=== PATIENT | male | born 1950 | race American Indian/Alaskan Native ===

== ENCOUNTER 2019-06-19 13:00 | Inpatient (IN) | payer MEDICARE ==
--- NOTE | 2019-06-19 13:12 | Emergency Department Report ---
Blank Doc - Documentation Documentation: 68-year-old male that presents with generalized weakness and unsteady gait that started yesterday. This initial assessment/diagnostic orders/clinical plan/treatment(s) is/are subject to change based on patient's health status, clinical progression and re- assessment by fellow clinical providers in the ED. Further treatment and workup at subsequent clinical providers discretion. Patient/guardians urged not to elope from the ED as their condition may be serious if not clinically assessed and managed. Initial orders include: 1- Patient sent to MAIN ED for further evaluation and treatment 2- CT head 3- labs 4- UA
--- NOTE | 2019-06-19 13:48 | XRay Report ---
CHEST 1 VIEW INDICATION: Altered Mental Status. COMPARISON: None FINDINGS: Support devices: None. Heart: Within normal limits. Lungs/Pleura: There is minor linear scarring or segmental atelectasis at the left lung base. Otherwis e the lungs are clear. Additional findings: None. IMPRESSION: No acute findings. Minor scarring or atelectasis at the left lung base. Signer Name: Tru Platt Jr, MD Signed: 06/19/2019 1:44 PM Workstation Name: [id number]
--- NOTE | 2019-06-19 14:06 | Emergency Department Report ---
ED General Adult HPI - General Chief complaint: Altered Mental Status Stated complaint: DISORIENTED/WEAK/FALL INJURY Time Seen by Provider: 06/19/19 13:11 Source: patient, family, RN notes reviewed Mode of arrival: Wheelchair Limitations: Altered Mental Status, Physical Limitation - History of Present Illness Initial comments: Primary care Dr.: Dr Yañez Psychiatry: Dr. Rehman The patient is a 68-year-old gentleman. The patient is not known to this provider previously. He has a history of diabetes and schizophrenia. History obtained entirely from the patient's son who lives with the patient. The patient's last known well time was sometime around 4:00 PM yesterday. As for the patient's son, the patient has been following, disoriented, and acting altered. As per the patient's son, no fevers, nausea, vomiting, change in medications recently. The patient is awake and follows commands, but is a poor historian, and is not able to describe exacerbating or relieving factors, qualitative nature of his symptoms. As for the patient's son, last known fall is last night. In the emergency room, the patient had an appropriate Accu-Chek, was protecting his airway, and moving 4 extremities. As per the son, patient typically able to walk on his own without assistance, although he does require some help with feeding and dressing himself. -: days(s) (last night/afternoon) Severity scale (0 -10): 5 Improves with: other Worsens with: other Treatments Prior to Arrival: other - Related Data Allergies Allergy/AdvReac Type Severity Reaction Status Date / Time No Known Allergies Allergy Unverified 06/19/19 13:03 ED Review of Systems ROS: Stated complaint: DISORIENTED/WEAK/FALL INJURY Other details as noted in HPI Comment: Unobtainable due to pts medical conditions (ros per son) Constitutional: malaise Neurological: weakness, confusion ED Past Medical Hx - Past Medical History Hx Hypertension: Yes Hx Psychiatric Treatment: Yes (DA[facility]ID) Additional medical history: HIGH CHOLESTEROL - Surgical History Past Surgical History?: No - Social History Smoking Status: Unknown if ever smoked ED Physical Exam - General Limitations: Altered Mental Status, Physical Limitation General appearance: alert - Head Head exam: Present: atraumatic, normocephalic - Eye Eye exam: Present: normal appearance, PERRL, EOMI - ENT ENT exam: Present: normal exam, normal orophraynx, mucous membranes moist, normal external ear exam - Neck Neck exam: Present: normal inspection, full ROM. Absent: tenderness, meningismus - Respiratory Respiratory exam: Present: normal lung sounds bilaterally. Absent: respiratory distress - Cardiovascular Cardiovascular Exam: Present: normal rhythm, tachycardia, normal heart sounds. Absent: systolic murmur, diastolic murmur, rubs, gallop - GI/Abdominal GI/Abdominal exam: Present: soft. Absent: distended, tenderness, guarding, rebound, rigid, pulsatile mass - Rectal Rectal exam: Present: deferred - Extremities Exam Extremities exam: Present: normal inspection (there is no clonus. Hyperreflexia is not noted.), full ROM, other (2+ pulses noted in the bilateral upper and lower extremities. The pelvis is stable. There is no long bony tenderness. The muscular compartments are soft. There is no redness, pus, streaking or erythema.). Absent: pedal edema, joint swelling, calf tenderness - Back Exam Back exam: Present: normal inspection. Absent: tenderness, CVA tenderness (R), CVA tenderness (L), paraspinal tenderness, vertebral tenderness - Neurological Exam Neurological exam: Present: altered (the patient is awake. The patient is moving 4 extremities. The patient mumbles incoherently. There is no facial droop.), abnormal gait - Psychiatric Psychiatric exam: Present: normal affect - Skin Skin exam: Present: warm, dry, intact, normal color. Absent: rash ED Course Vital Signs 06/19/19 06/19/19 06/19/19 13:13 14:08 14:34 Temperature 97.5 F L Pulse Rate 125 H 106 H 102 H Respiratory 20 19 Rate Blood Pressure 132/59 Blood Pressure 110/55 [Right] O2 Sat by Pulse 97 100 100 Oximetry 06/19/19 06/19/19 06/19/19 14:50 14:51 15:02 Temperature 97.0 F L Pulse Rate 101 H 107 H Respiratory 17 17 22 Rate Blood Pressure 98/43 Blood Pressure 98/43 [Right] O2 Sat by Pulse 100 100 99 Oximetry 06/19/19 06/19/19 06/19/19 15:22 17:28 17:30 Temperature Pulse Rate 138 H 105 H 103 H Respiratory 26 H 14 15 Rate Blood Pressure 98/43 141/67 Blood Pressure [Right] O2 Sat by Pulse 99 98 Oximetry - Reevaluation(s) Reevaluation #1: 06/19/19 14:33 Differential diagnosis, including but not limited to: Subacute stroke, intracranial injury, cervical spine injury, electrolyte derangement, thyroid derangement, pneumonia, urinary tract infection, multifactorial altered mental status Assessment and plan: 68-year-old gentleman who is awake, following commands, protecting his airway, moving 4 extremities spontaneously, with altered mental status and reported unsteady gait, last normal well time was 4:00 PM yesterday. Last known well time is more than 4.5 hours ago, therefore, he is not a TPA candidate. This is unlikely to be a large vessel occlusion. Suspect toxic/metabolic/possible infectious etiology. Plan is to check basic laboratory studies, rectal temperature, urinalysis, CT scan of the brain, CT scan of the cervical spine, and obtain stroke neurology consultation. Medication reconciliation has also been requested. Based off of the current physical examination, lack of clonus, lack of hyperreflexia, I think neuroleptic malignant syndrome is unlikely. Based off of lack of fever, neck pain, neck stiffness, I think meningitis and/or encephalitis are unlikely. 06/19/19 14:35 Reevaluation #2: 06/19/19 15:[address] recommends [address] angio head neck patient having diarrhea, multiple episodes no risk factors for c diff RN Instructed to obtain sample for lab analysis Reevaluation #3: 06/19/19 15:25 Patient standing up, trying to leave. The patient does not have decision-making capacity at this time. We discussed this extensively with his son. His son states that he will do his best to keep his father here. His son gives verbal permission to give medication to help, patient down. The patient is tachycardic, fluids ordered, Ativan ordered. Reevaluation #4: 06/19/19 17:09 CT scan of the brain is negative for acute disease. CT scan of the cervical spine is negative for acute disease. X-ray of the pelvis is negative for acute disease. Reevaluation #5: 06/19/19 17:46 cta head / neck negative for large vessel occlusion hospitalist paged for admission no fevers noted diarrhea likely viral, will provide fluids and supportive care antibiotics may make it worse so will withhold at this time - Consultations Consultation #1: 06/19/19 18:56 Dr Celso Jones to admit ED Medical Decision Making - Lab Data Result diagrams: 06/19/19 14:01 06/19/19 14:01 Vital Signs 06/19/19 13:13 Temperature 97.5 F L Pulse Rate 125 H Respiratory 20 Rate Blood Pressure 110/55 [Right] O2 Sat by Pulse 97 Oximetry Lab Results 06/19/19 06/19/19 Range/Units 14:01 14:16 WBC 10.9 (4.5-11.0) K/mm3 RBC 4.18 (3.65-5.03) M/mm3 Hgb 13.0 (11.8-15.2) gm/dl Hct 38.4 (35.5-45.6) % MCV 92 (84-94) fl MCH 31 (28-32) pg MCHC 34 (32-34) % RDW 13.8 (13.2-15.2) % Plt Count 264 (140-440) K/mm3 Lymph % (Auto) 9.9 L (13.4-35.0) % [place] % (Auto) 10.2 H (0.0-7.3) % Eos % (Auto) 0.1 (0.0-4.3) % Baso % (Auto) 0.3 (0.0-1.8) % Lymph # 1.1 L (1.2-5.4) K/mm3 [place] # 1.1 H (0.0-0.8) K/mm3 Eos # 0.0 (0.0-0.4) K/mm3 Baso # 0.0 (0.0-0.1) K/mm3 Seg Neutrophils % 79.5 H (40.0-70.0) % Seg Neutrophils # 8.7 H (1.8-7.7) K/mm3 POC Glucose 165 H (70-105) - EKG Data -: EKG Interpreted by Ny EKG shows normal: sinus rhythm Rate: tachycardia - EKG Data When compared to previous EKG there are: previous EKG unavailable 06/19/19 14:35 There is no prior EKG available for comparison. EKG shows a sinus tachycardia, 108 bpm, normal axis, QTC 469 ms, left ventricular hypertrophy, Q waves noted in the inferior leads, the EKG is abnormal, it is not consistent with STEMI. There is no prior for comparison. - Radiology Data Radiology results: pending, report reviewed, image reviewed eport Referring Physician: PHOEBE SAMUELS Patient Name: MALLORY CHERY Date of : 1950 Sex: Male Report Date: 2019-06-19 Report Status: Finalized Findings [facility] [address] [place] [address] XRay Report Signed Patient: MALLORY CHERY MR#: [id number] 9 : 1950 Acct:[id number] Age/Sex: 68 / M ADM Date: 06/19/19 Loc: ED Attending Dr: Ordering Physician: PHOEBE SAMUELS NP Date of Service: 06/19/19 Procedure(s): XR chest 1V ap Accession Number(s): [id number] cc: PHOEBE SAMUELS NP Fluoro Time In Minutes: CHEST 1 VIEW INDICATION: Altered Mental Status. COMPARISON: None FINDINGS: Support devices: None. Heart: Within normal limits. Lungs/Pleura: There is minor linear scarring or segmental atelectasis at the left lung base. Otherwise the lungs are clear. Additional findings: None. IMPRESSION: No acute findings. Minor scarring or atelectasis at the left lung base. Signer Name: Tru Platt Jr, MD Signed: 06/19/2019 1:44 PM Workstation Name: [id number] Transcribed By: TTR Dictated By: TRU PLATT JR, MD Electronically Authenticated By: TRU PLATT JR, MD Signed Date/Time: 06/19/19 1344 Critical care attestation.: If time is entered above; I have spent that time in minutes in the direct care of this critically ill patient, excluding procedure time. ED Disposition Clinical Impression: Altered mental status, History of unsteady gait Disposition: OP ADMIT IP TO THIS HOSP Is pt being admited?: Yes Does the pt Need Aspirin: Yes Condition: Stable Referrals: PRIMARY CARE,MD [Primary Care Provider] - 3-5 Days
--- NOTE | 2019-06-19 14:24 | Emergency Department Report ---
HPI - General Chief Complaint: Altered Mental Status Time Seen by Provider: 06/19/19 13:11 - HPI HPI: [facility] Date of Service: 06/19/2019 14:03:08 Impression: RO Acute Ischemic Stroke Comments: The patient has blood pressure medicaiton has his pressure very low, and he had diarrhea, with it all over the bathroom. Mechanism of Stroke: Possible Thromboembolic Metrics: Last Known Well: 06/18/2019 21:00:00 [facility] Notification Time: 06/19/2019 14:02:35 Arrival Time: 06/19/2019 14:03:08 Stamp Time: 06/19/2019 14:03:08 Time First Login Attempt: 06/19/2019 14:07:49 Video Start Time: 06/19/2019 14:07:49 Symptoms: dizzy, and fell, and disoriented, and confused. NIHSS Start Assessment Time: 06/19/2019 14:10:24 Patient is not a candidate for tPA. Patient was not deemed candidate for tPA thrombolytics because of Last Well Known Above 4.5 Hours. Video End Time: 06/19/2019 14:10:48 CT head showed no acute hemorrhage or acute core infarct. Advanced imaging was reviewed, No Indication of Large Vessel Occlusive Thrombus. Radiologist was called back for review of advanced imaging on 06/19/2019 14:13:09 ER Physician notified of the decision on thrombolytics management on 06/19/2019 14:13:09 Our recommendations are outlined below. Recommendations: Activate Stroke Protocol Admission/Order Set Stroke/Telemetry Floor Neuro Checks Bedside Swallow Eval DVT Prophylaxis IV Fluids, Normal Saline Head of Bed Below 30 Degrees Euglycemia and Avoid Hyperthermia (PRN Acetaminophen) Lipid Panel to Be Obtained, if Not Done in the Last Three Months Therapies: Physical Therapy, Occupational Therapy, Speech Therapy Assessment When Applicable Dysphaghia Screen: Swallow Evaluation, Bedside NPO Until Swallow Evaluation History of Present Illness: Patient is a 68 year old Male. He takes benztropine, and haloperidol. He stopped the bp meds and diabetes medication. CT head showed no acute hemorrhage or acute core infarct. Last seen normal was beyond 4.5 hours of presentation. There is no history of hemorrhagic complications or intracranial hemorrhage. There is no history of Recent Anticoagulants. There is no history of recent major surgery. There is no history of recent stroke. Examination: BP(165/90), Pulse(102), Blood Glucose(165) 1A: Level of Consciousness - Alert; keenly responsive + 0 1B: Ask Month and Age - Both Questions Right + 0 1C: Blink Eyes & Squeeze Hands - Performs Both Tasks + 0 2: Test Horizontal Extraocular Movements - Normal + 0 3: Test Visual Lopez - No Visual Loss + 0 4: Test Facial Palsy (Use Grimace if Obtunded) - Normal symmetry + 0 5A: Test Left Arm Motor Drift - No Drift for 10 Seconds + 0 5B: Test Right Arm Motor Drift - No Drift for 10 Seconds + 0 6A: Test Left Leg Motor Drift - No Drift for 5 Seconds + 0 6B: Test Right Leg Motor Drift - No Drift for 5 Seconds + 0 7: Test Limb Ataxia (FNF/Heel-Kessler) - No Ataxia + 0 8: Test Sensation - Normal; No sensory loss + 0 9: Test Language/Aphasia - Normal; No aphasia + 0 10: Test Dysarthria - Normal + 0 11: Test Extinction/Inattention - No abnormality + 0 NIHSS Score: 0 Patient was informed the Neurology Consult would happen via TeleHealth consult by way of interactive audio and video telecommunications and consented to receiving care in this manner. Due to the immediate potential for life-threatening deterioration due to underlying acute neurologic illness, I spent 35 minutes providing critical care. This time includes time for face to face visit via telemedicine, review of medical records, imaging studies and discussion of findings with providers, the patient and/or family. Dr Mateo Tamez [facility] Case [id number] ED Past Medical Hx - Past Medical History Hx Hypertension: Yes Hx Psychiatric Treatment: Yes (SCHZO) Additional medical history: HIGH CHOLESTEROL - Surgical History Past Surgical History?: No - Social History Smoking Status: Unknown if ever smoked ED Review of Systems ROS: Stated complaint: DISORIENTED/WEAK/FALL INJURY Other details as noted in HPI Physical Exam - Physical Exam Vital Signs: Vital Signs 06/19/19 13:13 Temperature 97.5 F L Pulse Rate 125 H Respiratory 20 Rate Blood Pressure 110/55 [Right] O2 Sat by Pulse 97 Oximetry ED Course Vital Signs 06/19/19 13:13 Temperature 97.5 F L Pulse Rate 125 H Respiratory 20 Rate Blood Pressure 110/55 [Right] O2 Sat by Pulse 97 Oximetry Critical care attestation.: If time is entered above; I have spent that time in minutes in the direct care of this critically ill patient, excluding procedure time. ED Disposition Condition: Stable Referrals: PRIMARY CARE, [Primary Care Provider] - 3-5 Days
[2019-06-19 14:29] LABS: Basophils % (Auto) 0.3 % (0.0-1.8); Eosinophils % (Auto) 0.1 % (0.0-4.3); Hematocrit 38.4 % (35.5-45.6); Lymphocytes # (Auto) 1.1 K/mm3 (1.2-5.4); Lymphocytes % (Auto) 9.9 % (13.4-35.0); Mean Corpuscular HGB Conc 34 % (32-34); Mean Corpuscular Volume 92 fl (84-94); Monocytes # (Auto) 1.1 K/mm3 (0.0-0.8); Monocytes % (Auto) 10.2 % (0.0-7.3); Platelet Count 264 K/mm3 (140-440); Red Blood Count 4.18 M/mm3 (3.65-5.03); Red Cell Distribution Width 13.8 % (13.2-15.2)
[2019-06-19 14:42] LABS: INR 1.06 (0.87-1.13)
[2019-06-19 14:43] LABS: Partial Thromboplastin Time 31.8 Sec. (24.2-36.6)
[2019-06-19 14:49] LABS: Alanine Aminotransferase 20 units/L (7-56); Albumin 4.1 g/dL (3.9-5); BUN/Creatinine Ratio 11; Blood Urea Nitrogen 11 mg/dL (9-20); Calcium 9.9 mg/dL (8.4-10.2); Hemolysis Index 8
[2019-06-19] MEDS ORDERED: SODIUM CHLORIDE 0.9% 1000 ML IV SOLN IV ONE (14:50)
--- NOTE | 2019-06-19 14:53 | Cat Scan Report ---
CT HEAD WITHOUT CONTRAST INDICATION / CLINICAL INFORMATION: Altered Mental Status. TECHNIQUE: All CT scans at this location are performed using CT dose reduction for ALARA by means of automated e xposure control. COMPARISON: None available. FINDINGS: HEMORRHAGE: No evidence of intracranial hemorrhage or extra-axial fluid collection. EXTRA-AXIAL SPACES: Cortical sulci and sylvian fissures are at the upper limit of normal in size for the patient's age 68 years. Basilar cisterns have an unremarkable appearance. VENTRICULAR SYSTEM: The third and lateral ventricles at the upper limit of normal for size in this 68 -year-old individual. CEREBRAL PARENCHYMA: Periventricular and deep white matter lucency is observed. This is probably secondary to microvascular ischemic change. There is no indication of recent infarc tion. No areas of encephalomalacia are identified. MIDLINE SHIFT OR HERNIATION: There is no mass effect. CEREBELLUM / BRAINSTEM: Brainstem and cerebellum have an unremarkable appearance. INTRACRANIAL VESSELS:Calcified atherosclerotic plaque is present at the distal vertebral arteries. ORBITS: visualized portions of the orbits have an unremarkable appearance. SOFT TISSUES of HEAD: No significant abnormality. CALVARIUM: Evaluation of bone windows reveals no abnormalities. PARANASAL SINUSES / MASTOID AIR CELLS: Paranasal sinuses are free from inflammatory mucosal disease. Mastoid air cells are normally pneumatized. IMPRESSION: 1. No acute intracranial abnormality on head CT without contrast. Signer Name: Mariano Kraft MD Signed: 06/19/2019 2:49 PM Workstation Name: [id number]
[2019-06-19] MEDS ORDERED: LORazepam 2 MG/ML VIAL IV STA (15:24)
--- NOTE | 2019-06-19 15:28 | Cat Scan Report ---
CT CERVICAL SPINE WITHOUT CONTRAST INDICATION / CLINICAL INFORMATION: Trauma. Patient fell sustaining neck injury. TECHNIQUE: Axial CT images were obtained through the cervical spine. Sagittal and coronal reformatted images wer e produced. All CT scans at this location are performed using CT dose reduction for ALARA by means of automated exposure control. COMPARISON: None FINDINGS: ALIGNMENT: Loss of the normal cervical lordosis is noted. No additional abnormalities of alignment ar e identified. There is no indication of traumatic subluxation. VERTEBRAE: Extensive anterior and mild posterior osteophyte formation is seen at multiple levels. The re is no indication of fracture. DISC SPACES: Near-complete loss of disc height is noted at the C3-4, C4-5 and C5-6 levels. INDIVIDUAL LEVEL ANALYSIS: C1-2: Advanced osteoarthritic changes are seen at the atlantoaxial junction between the anterior arch of C1 and the odontoid process where there is loss of joint space and prominent osteophyte formation . C2-3: Facet and uncovertebral arthropathy contribute to moderate bilateral foraminal stenosis. Centra l spinal canal remains adequate in size. C3-4: Near-complete loss of disc height is noted. Anterior osteophyte and mild posterior osteophyte a re observed. Uncovertebral arthritic change contribute to moderate bilateral foraminal stenosis. Cent ral spinal canal appears to be adequate in size. C4-5: Near-complete loss of disc height is noted. Prominent anterior osteophyte and mild posterior os teophyte are observed. Uncovertebral arthritic changes contribute to moderate right-sided and mild le ft-sided neuroforaminal stenosis at the C5 nerve root level. Central spinal canal is adequately maint ained. C5-6: Near complete loss of disc height is noted. Prominent anterior osteophyte formation is observed . uncovertebral arthritic change contribute to moderate bilateral foraminal stenosis at the C6 nerve root level. Central spinal canal is adequately maintained. C6-7: Disc height is noted. Prominent anterior osteophyte formation is observed. Central spinal canal and neuroforamina are normally maintained. C7-T1:No abnormality. CRANIOCERVICAL JUNCTION:No significant abnormality. SPINAL CANAL: No indication of central canal stenosis. PARASPINAL SOFT TISSUES: No significant abnormality. ADDITIONAL FINDINGS: None. LUNG APICES: No significant abnormality of visualized lungs. IMPRESSION: 1. Widespread cervical spondylosis with loss of disc height, anterior osteophyte, posterior osteophyt e and uncovertebral arthritic change at multiple levels as described level by level above. 2. Multifocal neuroforaminal stenosis. 3. No indication of fracture or traumatic subluxation. Signer Name: Mariano Kraft MD Signed: 06/19/2019 3:24 PM Workstation Name: [id number]
--- NOTE | 2019-06-19 16:44 | XRay Report ---
PELVIS ONE VIEW. INDICATION / CLINICAL INFORMATION: falls weakness COMPARISON: None available. FINDINGS: BONES / JOINT(S): No acute fracture or subluxation. No significant arthritis. SOFT TISSUES: No significant abnormality. ADDITIONAL FINDINGS: None. Signer Name: Jarrod Parker MD Signed: 06/19/2019 4:39 PM Workstation Name: [id number]
--- NOTE | 2019-06-19 17:23 | Cat Scan Report ---
CTA neck with intravenous contrast material CLINICAL HISTORY: [facility] TECHNIQUE: Following acquisition of a timing bolus 1.25 mm thick contiguous axial scans were obtained from aorti c arch to the skull base during rapid bolus intravenous contrast infusion. In addition to evaluation of axial source images multiplanar reconstructions were produced and reviewed for this report. 3 plan e MIP reconstructions were produced and reviewed. FINDINGS: Thoracic aorta: No abnormalities are seen at the origins of the great vessels. Incidental note is mad e of a common origin of the brachiocephalic left common carotid artery. Brachiocephalic artery and le ft subclavian artery have an unremarkable appearance. Right carotid artery: No abnormalities are seen along the course of the right common carotid artery. Evaluation of the carotid bifurcations remarkable for minimal calcified atherosclerotic plaque along the lateral aspect of the right carotid bulb. There is no indication of stenosis. Cervical portions o f the R ICA have a normal appearance. Left carotid artery: Left common carotid artery has a normal appearance. Evaluation of the left carot id bifurcation is remarkable for the presence of calcified atherosclerotic plaque along the posterior lateral wall of the left carotid bulb. There is no associated stenosis. Cervical segments of the LIC A have a normal appearance. Normal and symmetrical vertebral arteries are present. There is no indication of stenosis along the c ourse of the vertebral arteries is artery origin is not included on this study. The degree of stenosi s, if any, is determined utilizing NASCET like criteria. In this case there is no indication of hemo dynamically significant stenosis at the carotid bifurcations or elsewhere. Evaluation of the nonvascular soft tissue structures reveal no abnormality. There is no indication of cervical lymphadenopathy. No abnormalities are seen along the course of the airway. Visualized porti ons of the parotid glands and the submandibular salivary glands have a normal appearance. Thyroid gla nd has a normal appearance. Evaluation of the lung apices reveals no evidence of lung nodule or infil trate. Evaluation of the cervical spine is remarkable for widespread cervical spondylosis. Please ref er to report of CT cervical spine dated 06/19/2019 which is dictated separately. IMPRESSION: 1. No indication of hemodynamically significant stenosis at the carotid bifurcations or elsewhere. Contrast dose report: Omnipaque 350: 100 ml, administered intravenously All CT examinations performed at this facility utilize modulated dose reduction, iterative reconstruc tion or weight-based dosing, as appropriate, to obtain a radiation dose which is as low as can reason ably be achieved. Signer Name: Mariano Kraft MD Signed: 06/19/2019 5:19 PM Workstation Name: [id number]
--- NOTE | 2019-06-19 17:28 | Cat Scan Report ---
CTA head with intravenous contrast CLINICAL HISTORY: [facility] TECHNIQUE: 0.625 mm thick contiguous axial scans were obtained from the skull base to the skull vertex during ra pid bolus administration of intravenous contrast material. Multiplanar reconstructions were produced in the coronal and sagittal planes. In addition 3 plane MIP instructions were produced and reviewed f or this report. The axial source images and reconstructed images were reviewed for this report. All CT scans at this location are performed using CT dose reduction for ALARA by means of automated e xposure control. FINDINGS: The caliber of the intracranial vessels is normal throughout. There is no indication of intracranial stenosis or large vessel occlusion. There is no evidence of aneurysm or other vascular malformation. Internal carotid arteries, middle cerebral arteries, anterior cerebral arteries all have an unremarka ble appearance. Balanced vertebral arteries both contribute basilar artery origin. Basilar artery has an unremarkable appearance. Symmetrical visualization of the posterior cerebral arteries is noted bi laterally. IMPRESSION: No abnormality identified on CTA head. CONTRAST DOSE REPORT: Omnipaque 350: 100 ml administered intravenously. Signer Name: Mariano Kraft MD Signed: 06/19/2019 5:24 PM Workstation Name: [id number]
--- NOTE | 2019-06-19 18:51 | History and Physical Report ---
History of Present Illness Chief complaint: He is confused History of present illness: 68-year-old male with hypertension, schizophrenia, hyperlipidemia presents to emergency department for evaluation. Patient is confused and unable to provide history at time of my exam. Patient history taken from son, as well as ED staff and EMS staff. As per son, the patient was in his usual state of health last night at bedtime around 2000 hrs. The patient also experienced a fall on yesterday. The patient son also reports that the patient has experienced increased confusion over the past 24 hours. Patient was transported to [facility] via private vehicle. The patient was seen and evaluated in the emergency department. A code stroke was called and tele-neurology was consulted. The patient was deemed not to be a candidate for TPA. The patient was placed in observation status and admitted to the [facility] unit and initiated on stroke protocol. The patient is currently nonambulatory, confused, and unable to conduct activities of daily living. As per the patient's son this is significantly different than the patient's baseline. Neurology team consulted in the emergency department. No reports of fever, chills, chest pain, productive cough, skin rash, bright red blood per rectum, known recent ill contacts. No prior admission for review. No medication listed for reconciliation at time of admission. Past History Past Medical History: hypertension, other (see HPI) Past Surgical History: No surgical history, Other (reviewed) Social history: single, lives with family. denies: smoking, alcohol abuse, p rescription drug abuse Family history: hypertension Medications and Allergies Allergies Allergy/AdvReac Type Severity Reaction Status Date / Time No Known Allergies Allergy Verified 06/19/19 19:14 Home Medications Medication Instructions Recorded Confirmed Last Taken Type AtorvaSTATin [Lipitor] 20 mg PO QHS 06/19/19 06/19/19 06/18/19 History Benztropine [Cogentin] 1 mg PO BID 06/19/19 06/19/19 06/19/19 History Ferrous Sulfate [Ferrous Sulfate 324 mg PO DAILY 06/19/19 06/19/19 06/19/19 History 324 MG] Quetiapine Fumarate [Seroquel Xr] 200 mg PO QHS 06/19/19 06/19/19 06/18/19 History haloperidoL [Haloperidol] 20 mg PO QDAY 06/19/19 06/19/19 06/19/19 History Review of Systems ROS unobtainable: due to mental status Exam - Constitutional Vitals: Temp Pulse Resp BP Pulse Ox 97.0 F L 103 H 15 141/67 98 06/19/19 14:50 06/19/19 17:30 06/19/19 17:30 06/19/19 17:30 06/19/19 17:30 General appearance: Present: mild distress - EENT Eyes: Present: PERRL ENT: hearing intact, clear oral mucosa - Neck Neck: Present: supple, normal ROM - Respiratory Respiratory effort: normal Respiratory: bilateral: CTA - Cardiovascular Heart Sounds: Present: S1 & S2. Absent: rub, click - Extremities Extremities: pulses symmetrical, No edema Peripheral Pulses: within normal limits - Abdominal General gastrointestinal: Present: soft, non-tender, non-distended, normal bowel sounds Male genitourinary: Present: normal - Integumentary Integumentary: Present: clear, warm, dry - Musculoskeletal Musculoskeletal: generalized weakness - Psychiatric Psychiatric: no appropriate mood/affect, no intact judgment & insight, no memory intact - Neurologic Neurologic: CNII-XII intact, moves all extremities, no gait normal Results - Labs CBC & Chem 7: 06/19/19 14:01 06/19/19 14:01 Labs: Abnormal lab results 06/19/19 06/19/19 06/19/19 Range/Units 14:01 14:01 14:01 Lymph % (Auto) 9.9 L (13.4-35.0) % [place] % (Auto) 10.2 H (0.0-7.3) % Lymph # 1.1 L (1.2-5.4) K/mm3 [place] # 1.1 H (0.0-0.8) K/mm3 Seg Neutrophils % 79.5 H (40.0-70.0) % Seg Neutrophils # 8.7 H (1.8-7.7) K/mm3 Sodium 134 L (137-145) mmol/L Chloride 96.0 L (98-107) mmol/L Glucose 165 H (75-100) mg/dL POC Glucose (70-105) Lactic Acid 2.60 H* (0.7-2.0) mmol/L Salicylates (2.8-20.0) mg/dL Acetaminophen (10.0-30.0) ug/mL Phenytoin (10.0-20.0) ug/mL Valproic Acid (50-100) ug/mL 06/19/19 06/19/19 06/19/19 Range/Units 14:01 14:01 14:16 Lymph % (Auto) (13.4-35.0) % [place] % (Auto) (0.0-7.3) % Lymph # (1.2-5.4) K/mm3 [place] # (0.0-0.8) K/mm3 Seg Neutrophils % (40.0-70.0) % Seg Neutrophils # (1.8-7.7) K/mm3 Sodium (137-145) mmol/L Chloride (98-107) mmol/L Glucose (75-100) mg/dL POC Glucose 165 H (70-105) Lactic Acid (0.7-2.0) mmol/L Salicylates < 0.3 L (2.8-20.0) mg/dL Acetaminophen < 5.0 L (10.0-30.0) ug/mL Phenytoin 0.8 L (10.0-20.0) ug/mL Valproic Acid < 2.8 L (50-100) ug/mL 06/19/19 Range/Units 16:49 Lymph % (Auto) (13.4-35.0) % [place] % (Auto) (0.0-7.3) % Lymph # (1.2-5.4) K/mm3 [place] # (0.0-0.8) K/mm3 Seg Neutrophils % (40.0-70.0) % Seg Neutrophils # (1.8-7.7) K/mm3 Sodium (137-145) mmol/L Chloride (98-107) mmol/L Glucose (75-100) mg/dL POC Glucose (70-105) Lactic Acid 2.20 H* (0.7-2.0) mmol/L Salicylates (2.8-20.0) mg/dL Acetaminophen (10.0-30.0) ug/mL Phenytoin (10.0-20.0) ug/mL Valproic Acid (50-100) ug/mL Assessment and Plan - Patient Problems (1) CVA (cerebral vascular accident) Current Visit: Yes Status: Acute Qualifiers: Laterality of affected vessel: unspecified Plan to address problem: Stroke protocol initiated: CT head, echocardiogram, carotid Doppler, neuro checks, seizure precautions, aspiration precautions, lipid panel, antiplatelet therapy, neurology consult, blood pressure control. (2) Encephalopathy Current Visit: Yes Status: Acute Plan to address problem: CT head, neurochecks, aspiration precautions, fall precautions, thyroid panel. (3) Diabetes Current Visit: Yes Status: Acute Plan to address problem: Consistent carbohydrate diet when able to tolerate oral intake, sliding scale insulin, Accu-Cheks, hypoglycemia protocol. (4) HTN (hypertension) Current Visit: Yes Status: Acute Qualifiers: Hypertension type: essential hypertension Qualified Code(s): I10 - Essential (primary) hypertension Plan to address problem: Monitor blood pressure every shift, permissive hypertension overnight. (5) Schizophrenia Current Visit: Yes Status: Acute Qualifiers: Schizophrenia type: unspecified Qualified Code(s): F20.9 - Schizophrenia, unspecified Plan to address problem: Supportive care, psychiatry consult (6) DVT prophylaxis Current Visit: Yes Status: Acute Plan to address problem: SCD to bilateral lower extremities while in bed, prophylactic heparin
[2019-06-19] MEDS ORDERED: MAGNESIUM HYDROXIDE (MOM) ORAL LIQD UDC PO PRN (18:58)
[2019-06-19] MEDS ORDERED: ACETAMINOPHEN 325 MG TAB PO PRN (18:58)
[2019-06-19] MEDS ORDERED: METOCLOPRAMIDE 10 MG TAB PO PRN (18:58)
[2019-06-19] MEDS ORDERED: ONDANSETRON 4 MG/2 ML INJ IV PRN (18:58)
[2019-06-19] MEDS ORDERED: ALBUTEROL 2.5 MG/3 ML NEBU IH PRN (18:58)
[2019-06-19] MEDS ORDERED: PROMETHAZINE 25 MG RECT SUPP PR PRN (18:58)
[2019-06-19] MEDS ORDERED: QUETIAPINE FUMARATE 200 MG PO SCH (22:00)
[2019-06-19] MEDS: BENZTROPINE 1 MG TAB PO SCH (23:17)
[2019-06-19] MEDS: HEPARIN 5,000 UNIT/1 ML VIAL SUB-Q SCH (23:17)
[2019-06-20 05:29] LABS: Bilirubin,Urine NEG (Negative); Blood,Urine MOD (Negative); Color,Urine Straw (Yellow); Protein,Urine <15 mg/dL mg/dL (Negative); Urobilinogen,Urine < 2.0 mg/dL (<2.0); WBC,Urine < 1.0 /HPF (0.0-6.0)
[2019-06-20 05:33] LABS: RBC,Urine < 1.0 /HPF (0.0-6.0)
--- NOTE | 2019-06-20 09:26 | Consultation ---
History of Present Illness Consult date: 06/20/19 Requesting physician: BRYON SALAZAR Reason for Consult: ams Chief complaint: I fell History of present illness: This is a 68-year-old male who cannot give his own history he has slurred speech at bedside history of diabetes and schizophrenia a stone chart review arrived with generalized weakness last time known normal was 4 PM on 06/18/2019 active issues include diarrhea Patient was acting altered this oriented was brought in by his son on admission no fever no hypoglycemia no hypoxia he was awake following commands in the ER moving all extremities well at baseline he needs help with feeding but walks independently Stroke workup was completed he was outside the 4-1/2 hour window and large vessel occlusion was not suspected Most of the history was taken from chart review does not seem he has a history of stroke in the past but bedside it seems she has some significant slurred speech and when asking to raise his arms up in the air looks like his left arm is down he is up poor historian and poor cooperation on exam EKG was sinus rhythm CT of the head reviewed and was negative for acute intracranial process. CTA of the head and neck reviewed no large vessel occlusion CT of the cervical spine reviewed negative for fracture No further neurological decline no atrial fibrillation no posturing seizures loss of consciousness no extra movements no tremor no hallucinations no nausea vomiting Patient denies any new numbness or tingling but does add briefly that he feels his left side is weak Overall patient looks very thin and deconditioned There's been no events overnight Patient understands he is in the hospital understands the time of year and can give me his name Patient denies headache Past medical history hypertension Family history hypertension Social history single lives with his family denies smoking alcohol or drugs Patient has been placed on aspirin echocardiogram lipid panel A1c are all pending along with the MRI brain lactic acid elevated ROS: all other systems neg Past History Past Medical History: hypertension, other (see HPI) Past Surgical History: No surgical history, Other (reviewed) Social history: single, lives with family. denies: smoking, alcohol abuse, prescription drug abuse Family history: hypertension Medications and Allergies Allergies Allergy/AdvReac Type Severity Reaction Status Date / Time No Known Allergies Allergy Verified 06/19/19 19:14 Home Medications Medication Instructions Recorded Confirmed Last Taken Type AtorvaSTATin [Lipitor] 20 mg PO QHS 06/19/19 06/19/19 06/18/19 History Benztropine [Cogentin] 1 mg PO BID 06/19/19 06/19/19 06/19/19 History Ferrous Sulfate [Ferrous Sulfate 324 mg PO DAILY 06/19/19 06/19/19 06/19/19 History 324 MG] Quetiapine Fumarate [Seroquel Xr] 200 mg PO QHS 06/19/19 06/19/19 06/18/19 History haloperidoL [Haloperidol] 20 mg PO QDAY 06/19/19 06/19/19 06/19/19 History Active Meds: Active Medications Acetaminophen (Tylenol) 650 mg PO Q4H PRN PRN Reason: Pain, Mild (1-3) Albuterol (Proventil) 2.5 mg IH Q3HRT PRN PRN Reason: Shortness Of Breath Aspirin (Aspirin) 325 mg PO QDAY [facility] Atorvastatin Calcium (Lipitor) 40 mg PO QHS [facility] Last Admin: 06/19/19 23:17 Dose: 40 mg Documented by: Benztropine Mesylate (Cogentin) 1 mg PO BID [facility] Last Admin: 06/19/19 23:17 Dose: 1 mg Documented by: Bisacodyl (Dulcolax) 10 mg [place] QDAY PRN PRN Reason: Constipation Ferrous Sulfate (Feosol) 325 mg PO QDAY [facility] Haloperidol (Haldol) 20 mg PO QDAY [facility] Heparin Sodium (Porcine) (Heparin) 5,000 unit SUB-Q Q12HR [facility] Last Admin: 06/19/19 23:17 Dose: 5,000 unit Documented by: Magnesium Hydroxide (Milk Of Magnesia) 30 ml PO Q4H PRN PRN Reason: Constipation Metoclopramide HCl (Reglan) 10 mg PO Q6H PRN PRN Reason: Nausea And Vomiting Miscellaneous Medication (Quetiapine Fumarate [Seroquel Xr]) 200 mg PO QHS [facility] Ondansetron HCl (Zofran) 4 mg IV Q8H PRN PRN Reason: Nausea And Vomiting Promethazine HCl (Phenergan) 25 mg [place] Q6H PRN PRN Reason: Nausea And Vomiting Sodium Chloride (Sodium Chloride Flush Syringe 10 Ml) 10 ml IV PRN PRN PRN Reason: LINE FLUSH Physical Examination - Vital Signs Vital Signs: Vital Signs Temp Pulse Resp BP Pulse Ox 97.5 F L 125 H 20 110/55 97 06/19/19 13:13 06/19/19 13:13 06/19/19 13:13 06/19/19 13:13 06/19/19 13:13 Patient is somewhat oriented to place and person doesn't really understand why he is here but he says his son brought him here he is oriented to season of the year there is mild to moderate disorientation overall He is awake and alert's Significant dysarthria No aphasia and no A apraxia or agnosia as best I can tell Cranial nerves II through XII are intact patient denies any facial numbness or loss of sensation to the left side of his face or right side Neck is supple skin intact pulses good times for abdomen soft Patient is very thin and overall decreased bulk throughout Very thin quadriceps loss of muscle bulk Patient seems to have some left-sided weakness 4 out of 5 strength namely the left upper extremity when asking do pronator drift testing He was able to walk to the bathroom per nursing without a left hemiparetic gait doesn't seem he has significant weakness in the left lower extremity I suspect slurred speech and left upper extremity weakness Otherwise tone is intact and symmetrically normal throughout deep tendon reflexes are 1+ throughout and symmetrical No overt cerebellar signs no extra movements Sensory seems intact throughout but this can be also unreliable Tongue is midline no discharge nose or ears EOMI PERRL Patient denies any double vision and visual [place] are full Results - Laboratory Findings CBC and BMP: 06/19/19 14:01 06/19/19 14:01 Abnormal Lab Findings: Abnormal Labs 06/19/19 06/19/19 06/19/19 14:01 14:01 14:01 Lymph % (Auto) 9.9 L Sebastian % (Auto) 10.2 H Lymph # 1.1 L Sebastian # 1.1 H Seg Neutrophils % 79.5 H Seg Neutrophils # 8.7 H Sodium 134 L Chloride 96.0 L Glucose 165 H POC Glucose Lactic Acid 2.60 H* Salicylates Acetaminophen Phenytoin Valproic Acid 06/19/19 06/19/19 06/19/19 14:01 14:01 14:16 Lymph % (Auto) Sebastian % (Auto) Lymph # Sebastian # Seg Neutrophils % Seg Neutrophils # Sodium Chloride Glucose POC Glucose 165 H Lactic Acid Salicylates < 0.3 L Acetaminophen < 5.0 L Phenytoin 0.8 L Valproic Acid < 2.8 L 06/19/19 16:49 Lymph % (Auto) Sebastian % (Auto) Lymph # Sebastian # Seg Neutrophils % Seg Neutrophils # Sodium Chloride Glucose POC Glucose Lactic Acid 2.20 H* Salicylates Acetaminophen Phenytoin Valproic Acid Assessment and Plan Concern for posterior circulation stroke basilar distribution acute ischemic thrombosis causing dysarthria and left upper extremity weakness, lacunar syndrome, stable, today would be day 2 after onset , no hyperacute stroke treatments were indicated based on time of presentation outside the TPA window and suspected large vessel occlusion was negative based on CTAs of the head and neck CT cervical spine negative for fracture No atrial fibrillation no recurrent strokes Antiplatelet onboard Statin Telemetry MRI brain pending echocardiogram with bubble pending PT OT Fall precautions No active psychosis Differential diagnosis patient did not arrive with hypertensive urgency to suggest PRES gen. weakness and fall may be secondary to systemic illness, dehydration, failure to thrive/ he did arrive with diarrhea seizure, lactic acid is elevated
[2019-06-20] MEDS: BENZTROPINE 1 MG TAB PO SCH ×2 (09:49→21:32)
[2019-06-20] MEDS: HEPARIN 5,000 UNIT/1 ML VIAL SUB-Q SCH ×2 (09:49→21:31)
[2019-06-20] MEDS: FERROUS SULFATE 325 MG TAB PO SCH (09:49)
[2019-06-20] MEDS: ASPIRIN 325 MG TAB PO SCH (09:49)
[2019-06-20] MEDS ORDERED: HALOPERIDOL 20 MG PO SCH (10:00)
[2019-06-20] MEDS ORDERED: NON-FORMULARY EACH (Ferrous Sulfate [Ferrous Sulfate 324 Mg] 324 MG) PO SCH (10:00)
[2019-06-20] MEDS: HALOPERIDOL 5 MG TAB PO SCH (10:01)
--- NOTE | 2019-06-20 10:59 | Progress Note ---
Assessment and Plan Assessment and plan: Acute CVA. CTA of the head and neck showed no large vessel occlusion or acute intracranial process. Continue stroke protocol. Follow-up echocardiogram, carotid Doppler and MRI brain. Continue aspirin and statin. Continue telemetry monitoring. PT/OT. Diabetes mellitus type 2. Continue Accu-Cheks and sliding scale insulin. Hypertension. Continue antihypertensive medications Schizophrenia. Psychiatry consulted. History Interval history: Patient appears to have dysarthria. No new issues overnight. Hospitalist Physical - Constitutional Vitals: Temp Pulse Resp BP Pulse Ox 98.1 F 94 H 20 102/51 98 06/20/19 07:44 06/20/19 07:44 06/20/19 07:44 06/20/19 07:44 06/20/19 07:44 General appearance: Present: mild distress - EENT Eyes: Present: PERRL, EOM intact ENT: hearing intact, clear oral mucosa, dentition normal - Neck Neck: Present: supple, normal ROM - Respiratory Respiratory effort: normal Respiratory: bilateral: CTA - Cardiovascular Rhythm: regular Heart Sounds: Present: S1 & S2. Absent: gallop, rub - Extremities Extremities: no ischemia, No edema, Full ROM - Abdominal General gastrointestinal: soft, non-tender, non-distended, normal bowel sounds - Integumentary Integumentary: Present: clear, warm, dry - Neurologic Neurologic: CNII-XII intact, moves all extremities Results - Labs CBC & Chem 7: 06/19/19 14:01 06/19/19 14:01 Labs: Laboratory Last Values WBC 10.9 K/mm3 (4.5-11.0) 06/19/19 14:01 RBC 4.18 M/mm3 (3.65-5.03) 06/19/19 14:01 Hgb 13.0 gm/dl (11.8-15.2) 06/19/19 14:01 Hct 38.4 % (35.5-45.6) 06/19/19 14:01 MCV 92 fl (84-94) 06/19/19 14:01 MCH 31 pg (28-32) 06/19/19 14:01 MCHC 34 % (32-34) 06/19/19 14:01 RDW 13.8 % (13.2-15.2) 06/19/19 14:01 Plt Count 264 K/mm3 (140-440) 06/19/19 14:01 Lymph % (Auto) 9.9 % (13.4-35.0) L 06/19/19 14:01 [place] % (Auto) 10.2 % (0.0-7.3) H 06/19/19 14:01 Eos % (Auto) 0.1 % (0.0-4.3) 06/19/19 14:01 Baso % (Auto) 0.3 % (0.0-1.8) 06/19/19 14:01 Lymph # 1.1 K/mm3 (1.2-5.4) L 06/19/19 14:01 [place] # 1.1 K/mm3 (0.0-0.8) H 06/19/19 14:01 Eos # 0.0 K/mm3 (0.0-0.4) 06/19/19 14:01 Baso # 0.0 K/mm3 (0.0-0.1) 06/19/19 14:01 Seg Neutrophils % 79.5 % (40.0-70.0) H 06/19/19 14:01 Seg Neutrophils # 8.7 K/mm3 (1.8-7.7) H 06/19/19 14:01 PT 13.9 Sec. (12.2-14.9) 06/19/19 14:01 INR 1.06 (0.87-1.13) 06/19/19 14:01 APTT 31.8 Sec. (24.2-36.6) 06/19/19 14:01 Sodium 134 mmol/L (137-145) L 06/19/19 14:01 Potassium 3.8 mmol/L (3.6-5.0) 06/19/19 14:01 Chloride 96.0 mmol/L (98-107) L 06/19/19 14:01 Carbon Dioxide 22 mmol/L (22-30) 06/19/19 14:01 Anion Gap 20 mmol/L 06/19/19 14:01 BUN 11 mg/dL (9-20) 06/19/19 14:01 Creatinine 1.0 mg/dL (0.8-1.5) 06/19/19 14:01 Estimated GFR > 60 ml/min 06/19/19 14:01 BUN/Creatinine Ratio 11 % 06/19/19 14:01 Glucose 165 mg/dL (75-100) H 06/19/19 14:01 POC Glucose 165 (70-105) H 06/19/19 14:16 Lactic Acid 1.80 mmol/L (0.7-2.0) 06/19/19 18:50 Calcium 9.9 mg/dL (8.4-10.2) 06/19/19 14:01 Magnesium 2.00 mg/dL (1.7-2.3) 06/19/19 14:01 Total Bilirubin 0.60 mg/dL (0.1-1.2) 06/19/19 14:01 AST 19 units/L (5-40) 06/19/19 14:01 ALT 20 units/L (7-56) 06/19/19 14:01 Alkaline Phosphatase 87 units/L (35-129) 06/19/19 14:01 Ammonia 26.0 umol/L (25-60) 06/19/19 14:13 Total Creatine Kinase 118 units/L (55-170) 06/19/19 14:01 Troponin T < 0.010 ng/mL (0.00-0.029) 06/19/19 18:50 Total Protein 7.9 g/dL (6.3-8.2) 06/19/19 14:01 Albumin 4.1 g/dL (3.9-5) 06/19/19 14:01 Albumin/Globulin Ratio 1.1 % 06/19/19 14:01 TSH 0.908 mlU/mL (0.270-4.200) 06/19/19 14:13 Urine Color Straw (Yellow) 06/20/19 05:00 Urine Turbidity Clear (Clear) 06/20/19 05:00 Urine pH 6.0 (5.0-7.0) 06/20/19 05:00 Ur Specific [place] 1.014 (1.003-1.030) 06/20/19 05:00 Urine Protein <15 mg/dl mg/dL (Negative) 06/20/19 05:00 Urine Glucose (UA) Neg mg/dL (Negative) 06/20/19 05:00 Urine Ketones Neg mg/dL (Negative) 06/20/19 05:00 Urine Blood Mod (Negative) 06/20/19 05:00 Urine Nitrite Neg (Negative) 06/20/19 05:00 Urine Bilirubin Neg (Negative) 06/20/19 05:00 Urine Urobilinogen < 2.0 mg/dL (<2.0) 06/20/19 05:00 Ur Leukocyte Esterase Neg (Negative) 06/20/19 05:00 Urine WBC (Auto) < 1.0 /HPF (0.0-6.0) 06/20/19 05:00 Urine RBC (Auto) < 1.0 /HPF (0.0-6.0) 06/20/19 05:00 U Epithel Cells (Auto) < 1.0 /HPF (0-13.0) 06/20/19 05:00 Salicylates < 0.3 mg/dL (2.8-20.0) L 06/19/19 14:01 Acetaminophen < 5.0 ug/mL (10.0-30.0) L 06/19/19 14:01 Phenytoin 0.8 ug/mL (10.0-20.0) L 06/19/19 14:01 Valproic Acid < 2.8 ug/mL (50-100) L 06/19/19 14:01 [place] 0.1 mmol/L (0.0-1.2) 06/19/19 14:01 Plasma/Serum Alcohol < 0.01 % (0-0.07) 06/19/19 14:13 Active Medications - Current Medications Current Medications: Generic Name Dose Route Start Last Admin Trade Name Freq PRN Reason Stop Dose Admin Acetaminophen 650 mg 06/19/19 18:58 Tylenol PO Q4H PRN Pain, Mild (1-3) Albuterol 2.5 mg 06/19/19 18:58 Proventil IH Q3HRT PRN Shortness Of Breath Aspirin 325 mg 06/20/19 10:00 06/20/19 09:49 Aspirin PO 325 mg QDAY [facility] Administration Atorvastatin Calcium 40 mg 06/19/19 22:00 06/19/19 23:17 Lipitor PO 40 mg QHS [facility] Administration Benztropine Mesylate 1 mg 06/19/19 22:00 06/20/19 09:49 Cogentin PO 1 mg BID [facility]IO[facility]E Administration Bisacodyl 10 mg 06/19/19 18:58 Dulcolax [place] QDAY PRN Constipation Ferrous Sulfate 325 mg 06/20/19 10:00 06/20/19 09:49 Feosol PO 325 mg QDAY [facility] Administration Haloperidol 20 mg 06/20/19 10:00 06/20/19 10:01 Haldol PO 20 mg QDAY [facility] Administration Heparin Sodium (Porcine) 5,000 unit 06/19/19 22:00 06/20/19 09:49 Heparin SUB-Q 5,000 unit Q12HR [facility] Administration Magnesium Hydroxide 30 ml 06/19/19 18:58 Milk Of Magnesia PO Q4H PRN Constipation Metoclopramide HCl 10 mg 06/19/19 18:58 Reglan PO Q6H PRN Nausea And Vomiting Miscellaneous Medication 200 mg 06/19/19 22:00 Quetiapine Fumarate [Seroquel Xr] PO QHS [facility] Ondansetron HCl 4 mg 06/19/19 18:58 Zofran IV Q8H PRN Nausea And Vomiting Promethazine HCl 25 mg 06/19/19 18:58 Phenergan [place] Q6H PRN Nausea And Vomiting Sodium Chloride 10 ml 06/19/19 18:58 Sodium Chloride Flush Syringe 10 Ml IV PRN PRN LINE FLUSH
[2019-06-20] MEDS ORDERED: hydrALAZINE 20 MG/1 ML INJ IV PRN (23:23)
[2019-06-21] MEDS: SODIUM CHLORIDE 0.9% 1000 ML 1,000 ML IV SCH (06:21)
[2019-06-21 08:36] LABS: Chol/HDL Ratio 1.9 %
--- NOTE | 2019-06-21 10:54 | Consultation ---
History of Present Illness - Reason for Consult Consult date: 06/21/19 Reason for consult: Schizophrenia Requesting physician: BRYON SALAZAR - Chief Complaint Chief complaint: I fell - History of Present Psychiatric Illness The patient is a 68-year-old male with history of hypertension, schizophrenia, hyperlipidemia admitted via the ED with c/o confusion. Psychiatry consult requested for medication management of Schizophrenia. Patient is not able to engage in meaningful conversation. Per medical records his home psych meds included Seroquel 200mg qhs, Haldol 20mg qd and Benztropine 1mg bid. Per record patient presented to the ED confused and was unable to provide history. Patient history taken from son. The patient son also reports that the patient has experienced increased confusion over the past 24 hours. The patient is currently non-ambulatory, confused, and unable to conduct activities of daily living. As per the patient's son this is significantly different than the patient's baseline. alcohol use reported. Per Neurology: Concern for posterior circulation stroke basilar distribution acute ischemic thrombosis causing dysarthria and left upper extremity weakness, lacunar syndrome, stable. Psychiatric Review of Systems: Unable to obtain due to patient factors Social History Unable to obtain due to patient factors Family Psychiatric History Records reviewed. No pertinent family history. Allergies As listed above Medical Review of Systems: Unable to assess due to patient factors Physical Exam: Chest: Chest inspection reveals normal expansion. Normal respiratory effort. Skin: Warm and dry with normal turgor Mental Status Exam: Unable to assess due to patient factors Psychiatric Diagnoses: Delirium due to a medical condition (CVA) Schizophrenia per history Recommendations: MEDICATIONS: Continue Home medications Will add Haldol 5mg q6h prn and Lorazepam 2mg q6h prn severe agitation MEDICAL: Per primary team DELIRIUM PRECAUTIONS: Please TURN OFF THE TV, re-orient patient frequently, keep lights on during the day, and minimize benzodiazepines and opiates as these medications could worsen patient's confusion. DENTIST: Defer to primary DISPOSITION: Per primary team; no indication for acute inpatient psychiatric hospitalization at this time LEGAL STATUS: Voluntary FOLLOW-UP: Will sign off. I have reviewed this treatment plan, including potential risks and benefits of medications, with the patient and/or family members and relevant hospital provi ders. Please contact with any questions and/or concerns. Medications and Allergies Allergies Allergy/AdvReac Type Severity Reaction Status Date / Time No Known Allergies Allergy Verified 06/19/19 19:14 Home Medications Medication Instructions Recorded Confirmed Last Taken Type AtorvaSTATin [Lipitor] 20 mg PO QHS 06/19/19 06/19/19 06/18/19 History Benztropine [Cogentin] 1 mg PO BID 06/19/19 06/19/19 06/19/19 History Ferrous Sulfate [Ferrous Sulfate 324 mg PO DAILY 06/19/19 06/19/19 06/19/19 History 324 MG] Quetiapine Fumarate [Seroquel Xr] 200 mg PO QHS 06/19/19 06/19/19 06/18/19 H istory haloperidoL [Haloperidol] 20 mg PO QDAY 06/19/19 06/19/19 06/19/19 History Active Meds: Active Medications Acetaminophen (Tylenol) 650 mg PO Q4H PRN PRN Reason: Pain, Mild (1-3) Albuterol (Proventil) 2.5 mg IH Q3HRT PRN PRN Reason: Shortness Of Breath Aspirin (Aspirin) 325 mg PO QDAY [facility] Last Admin: 06/20/19 09:49 Dose: 325 mg Documented by: Atorvastatin Calcium (Lipitor) 40 mg PO QHS [facility] Last Admin: 06/20/19 21:40 Dose: 40 mg Documented by: Benztropine Mesylate (Cogentin) 1 mg PO BID [facility] Last Admin: 06/20/19 21:32 Dose: 1 mg Documented by: Bisacodyl (Dulcolax) 10 mg [place] QDAY PRN PRN Reason: Constipation Ferrous Sulfate (Feosol) 325 mg PO QDAY [facility] Last Admin: 06/20/19 09:49 Dose: 325 mg Documented by: Haloperidol (Haldol) 20 mg PO QDAY [facility] Last Admin: 06/20/19 10:01 Dose: 20 mg Documented by: Heparin Sodium (Porcine) (Heparin) 5,000 unit SUB-Q Q12HR [facility] Last Admin: 06/20/19 21:31 Dose: 5,000 unit Documented by: Sodium Chloride (Nacl 0.9% 1000 Ml) 1,000 mls @ 75 mls/hr IV DIRECT [facility] Last Admin: 06/21/19 06:21 Dose: 75 mls/hr Documented by: Magnesium Hydroxide (Milk Of Magnesia) 30 ml PO Q4H PRN PRN Reason: Constipation Metoclopramide HCl (Reglan) 10 mg PO Q6H PRN PRN Reason: Nausea And Vomiting Miscellaneous Medication (Quetiapine Fumarate [Seroquel Xr]) 200 mg PO QHS [facility] Ondansetron HCl (Zofran) 4 mg IV Q8H PRN PRN Reason: Nausea And Vomiting Promethazine HCl (Phenergan) 25 mg [place] Q6H PRN PRN Reason: Nausea And Vomiting Sodium Chloride (Sodium Chloride Flush Syringe 10 Ml) 10 ml IV PRN PRN PRN Reason: LINE FLUSH Last Admin: 06/21/19 06:21 Dose: 10 ml Documented by: Mental Status Exam - Vital signs Last Vital Signs Temp 98.5 F 06/21/19 07:32 Pulse 93 H 06/21/19 07:32 Resp 20 06/21/19 07:32 BP 111/46 06/21/19 07:32 Pulse Ox 93 06/21/19 07:32 Results Result Diagrams: 06/19/19 14:01 06/19/19 14:01 Abnormal lab results 06/20/19 Range/Units 04:35 HDL Cholesterol 65 H (40-59) mg/dL All other labs normal.
[2019-06-21] MEDS ORDERED: LORazepam 2 MG/ML VIAL IM PRN (11:01)
[2019-06-21] MEDS ORDERED: HALOPERIDOL LACTATE 5 MG/1 ML INJ IM PRN (11:01)
[2019-06-21] MEDS: FERROUS SULFATE 325 MG TAB PO SCH (11:05)
[2019-06-21] MEDS: ASPIRIN 325 MG TAB PO SCH (11:05)
[2019-06-21] MEDS: BENZTROPINE 1 MG TAB PO SCH ×2 (11:05→22:01)
[2019-06-21] MEDS: HEPARIN 5,000 UNIT/1 ML VIAL SUB-Q SCH ×2 (11:06→22:01)
[2019-06-21] MEDS: HALOPERIDOL 5 MG TAB PO SCH (11:06)
--- NOTE | 2019-06-21 12:58 | Progress Note ---
Assessment and Plan Assessment and plan: Acute CVA. CTA of the head and neck showed no large vessel occlusion or acute intracranial process. Continue stroke protocol. Follow-up echocardiogram, carotid Doppler and MRI brain. Continue aspirin and statin. Continue telemetry monitoring. PT/OT. Diabetes mellitus type 2. Continue Accu-Cheks and sliding scale insulin. Hypertension. Continue antihypertensive medications Schizophrenia. Psychiatry consulted. History Interval history: Patient appears to have dysarthria. No new issues overnight. Hospitalist Physical - Constitutional Vitals: Temp Pulse Resp BP Pulse Ox 98.5 F 93 H 20 111/46 93 06/21/19 07:32 06/21/19 07:32 06/21/19 07:32 06/21/19 07:32 06/21/19 07:32 General appearance: Present: mild distress - EENT Eyes: Present: PERRL, EOM intact ENT: hearing intact, clear oral mucosa, dentition normal - Neck Neck: Present: supple, normal ROM - Respiratory Respiratory effort: normal Respiratory: bilateral: CTA - Cardiovascular Rhythm: regular Heart Sounds: Present: S1 & S2. Absent: gallop, rub - Extremities Extremities: no ischemia, No edema, Full ROM - Abdominal General gastrointestinal: soft, non-tender, non-distended, normal bowel sounds - Integumentary Integumentary: Present: clear, warm, dry - Neurologic Neurologic: CNII-XII intact, moves all extremities Results - Labs CBC & Chem 7: 06/19/19 14:01 06/19/19 14:01 Labs: Laboratory Last Values WBC 10.9 K/mm3 (4.5-11.0) 06/19/19 14:01 RBC 4.18 M/mm3 (3.65-5.03) 06/19/19 14:01 Hgb 13.0 gm/dl (11.8-15.2) 06/19/19 14:01 Hct 38.4 % (35.5-45.6) 06/19/19 14:01 MCV 92 fl (84-94) 06/19/19 14:01 MCH 31 pg (28-32) 06/19/19 14:01 MCHC 34 % (32-34) 06/19/19 14:01 RDW 13.8 % (13.2-15.2) 06/19/19 14:01 Plt Count 264 K/mm3 (140-440) 06/19/19 14:01 Lymph % (Auto) 9.9 % (13.4-35.0) L 06/19/19 14:01 [place] % (Auto) 10.2 % (0.0-7.3) H 06/19/19 14:01 Eos % (Auto) 0.1 % (0.0-4.3) 06/19/19 14:01 Baso % (Auto) 0.3 % (0.0-1.8) 06/19/19 14:01 Lymph # 1.1 K/mm3 (1.2-5.4) L 06/19/19 14:01 [place] # 1.1 K/mm3 (0.0-0.8) H 06/19/19 14:01 Eos # 0.0 K/mm3 (0.0-0.4) 06/19/19 14:01 Baso # 0.0 K/mm3 (0.0-0.1) 06/19/19 14:01 Seg Neutrophils % 79.5 % (40.0-70.0) H 06/19/19 14:01 Seg Neutrophils # 8.7 K/mm3 (1.8-7.7) H 06/19/19 14:01 PT 13.9 Sec. (12.2-14.9) 06/19/19 14:01 INR 1.06 (0.87-1.13) 06/19/19 14:01 APTT 31.8 Sec. (24.2-36.6) 06/19/19 14:01 Sodium 134 mmol/L (137-145) L 06/19/19 14:01 Potassium 3.8 mmol/L (3.6-5.0) 06/19/19 14:01 Chloride 96.0 mmol/L (98-107) L 06/19/19 14:01 Carbon Dioxide 22 mmol/L (22-30) 06/19/19 14:01 Anion Gap 20 mmol/L 06/19/19 14:01 BUN 11 mg/dL (9-20) 06/19/19 14:01 Creatinine 1.0 mg/dL (0.8-1.5) 06/19/19 14:01 Estimated GFR > 60 ml/min 06/19/19 14:01 BUN/Creatinine Ratio 11 % 06/19/19 14:01 Glucose 165 mg/dL (75-100) H 06/19/19 14:01 POC Glucose 165 (70-105) H 06/19/19 14:16 Lactic Acid 1.80 mmol/L (0.7-2.0) 06/19/19 18:50 Calcium 9.9 mg/dL (8.4-10.2) 06/19/19 14:01 Magnesium 2.00 mg/dL (1.7-2.3) 06/19/19 14:01 Total Bilirubin 0.60 mg/dL (0.1-1.2) 06/19/19 14:01 AST 19 units/L (5-40) 06/19/19 14:01 ALT 20 units/L (7-56) 06/19/19 14:01 Alkaline Phosphatase 87 units/L (35-129) 06/19/19 14:01 Ammonia 26.0 umol/L (25-60) 06/19/19 14:13 Total Creatine Kinase 118 units/L (55-170) 06/19/19 14:01 Troponin T < 0.010 ng/mL (0.00-0.029) 06/19/19 18:50 Total Protein 7.9 g/dL (6.3-8.2) 06/19/19 14:01 Albumin 4.1 g/dL (3.9-5) 06/19/19 14:01 Albumin/Globulin Ratio 1.1 % 06/19/19 14:01 Triglycerides 46 mg/dL (2-149) 06/20/19 04:35 Cholesterol 124 mg/dL (50-199) 06/20/19 04:35 LDL Cholesterol Direct 55 mg/dL (50-130) 06/20/19 04:35 HDL Cholesterol 65 mg/dL (40-59) H 06/20/19 04:35 Cholesterol/HDL Ratio 1.90 % 06/20/19 04:35 TSH 0.908 mlU/mL (0.270-4.200) 06/19/19 14:13 Urine Color Straw (Yellow) 06/20/19 05:00 Urine Turbidity Clear (Clear) 06/20/19 05:00 Urine pH 6.0 (5.0-7.0) 06/20/19 05:00 Ur Specific [place] 1.014 (1.003-1.030) 06/20/19 05:00 Urine Protein <15 mg/dl mg/dL (Negative) 06/20/19 05:00 Urine Glucose (UA) Neg mg/dL (Negative) 06/20/19 05:00 Urine Ketones Neg mg/dL (Negative) 06/20/19 05:00 Urine Blood Mod (Negative) 06/20/19 05:00 Urine Nitrite Neg (Negative) 06/20/19 05:00 Urine Bilirubin Neg (Negative) 06/20/19 05:00 Urine Urobilinogen < 2.0 mg/dL (<2.0) 06/20/19 05:00 Ur Leukocyte Esterase Neg (Negative) 06/20/19 05:00 Urine WBC (Auto) < 1.0 /HPF (0.0-6.0) 06/20/19 05:00 Urine RBC (Auto) < 1.0 /HPF (0.0-6.0) 06/20/19 05:00 U Epithel Cells (Auto) < 1.0 /HPF (0-13.0) 06/20/19 05:00 Salicylates < 0.3 mg/dL (2.8-20.0) L 06/19/19 14:01 Acetaminophen < 5.0 ug/mL (10.0-30.0) L 06/19/19 14:01 Phenytoin 0.8 ug/mL (10.0-20.0) L 06/19/19 14:01 Valproic Acid < 2.8 ug/mL (50-100) L 06/19/19 14:01 [place] 0.1 mmol/L (0.0-1.2) 06/19/19 14:01 Plasma/Serum Alcohol < 0.01 % (0-0.07) 06/19/19 14:13 Active Medications - Current Medications Current Medications: Generic Name Dose Route Start Last Admin Trade Name Freq PRN Reason Stop Dose Admin Acetaminophen 650 mg 06/19/19 18:58 Tylenol PO Q4H PRN Pain, Mild (1-3) Albuterol 2.5 mg 06/19/19 18:58 Proventil IH Q3HRT PRN Shortness Of Breath Aspirin 325 mg 06/20/19 10:00 06/21/19 11:05 Aspirin PO 325 mg QDAY [facility] Administration Atorvastatin Calcium 40 mg 06/19/19 22:00 06/20/19 21:40 Lipitor PO 40 mg QHS [facility] Administration Benztropine Mesylate 1 mg 06/19/19 22:00 06/21/19 11:05 Cogentin PO 1 mg BID [facility] Administration Bisacodyl 10 mg 06/19/19 18:58 Dulcolax [place] QDAY PRN Constipation Ferrous Sulfate 325 mg 06/20/19 10:00 06/21/19 11:05 Feosol PO 325 mg QDAY [facility] Administration Haloperidol 20 mg 06/20/19 10:00 06/21/19 11:06 Haldol PO 20 mg QDAY [facility] Administration Haloperidol Lactate 5 mg 06/21/19 11:01 Haldol IM Q6H PRN Agitation Heparin Sodium (Porcine) 5,000 unit 06/19/19 22:00 06/21/19 11:06 Heparin SUB-Q 5,000 unit Q12HR [facility] Administration Sodium Chloride 1,000 mls @ 75 mls/hr 06/21/19 05:45 06/21/19 06:21 Nacl 0.9% 1000 Ml IV 75 mls/hr DIRECT [facility] Administration Lorazepam 2 mg 06/21/19 11:01 Ativan IM Q6H PRN Agitation Magnesium Hydroxide 30 ml 06/19/19 18:58 Milk Of Magnesia PO Q4H PRN Constipation Metoclopramide HCl 10 mg 06/19/19 18:58 Reglan PO Q6H PRN Nausea And Vomiting Miscellaneous Medication 200 mg 06/19/19 22:00 Quetiapine Fumarate [Seroquel Xr] PO QHS [facility] Ondansetron HCl 4 mg 06/19/19 18:58 Zofran IV Q8H PRN Nausea And Vomiting Promethazine HCl 25 mg 06/19/19 18:58 Phenergan [place] Q6H PRN Nausea And Vomiting Sodium Chloride 10 ml 06/19/19 18:58 06/21/19 06:21 Sodium Chloride Flush Syringe 10 Ml IV 10 ml PRN PRN Administration LINE FLUSH Nutrition/Malnutrition Assess - Dietary Evaluation Nutrition/Malnutrition Findings: Nutrition Notes Start: 06/20/19 12:01 Freq: Status: Active Protocol: Document 06/20/19 12:01 LP (Rec: 06/20/19 12:07 LP [email or web address]) Nutrition Notes Need for 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 Pt sleeping at time of visit. Noticed slight temporal wasting. Burn Absent Trauma Absent Minimum of two criteria No Body Fat Depletion Mild depletion (non-severe) #1 Nutrition Diagnosis Predicted suboptimal energy intake Etiology Advanced age and AMS As Evidenced by Signs and Symptoms Pt NPO and no nutrition hx Is patient on ventilator? No Is Patient Ambulatory and/or Out of Bed No REE-([facility]-confined to bed) [phone] Calculation Used for Recommendations [facility] Additional Notes Protein needs are 66-75g (1-1. 2g/kg) Fluid needs are 1ml/kcal Nutrition Intervention Change Diet Order: Advance to cardiac/consistent CHO as feasible Goal #1 Advance diet Anticipated Discharge Needs: Unable to determine at this time Follow-Up By: 06/22/19 Additional Comments Follow for diet advancement and intakes
--- NOTE | 2019-06-21 14:36 | Magnetic Resonance Report ---
MRI BRAIN 06/21/2019 INDICATION / CLINICAL INFORMATION: cva. Confusion TECHNIQUE: Multiplanar, multisequence MR images of the brain were obtained. ` COMPARISON: None available. FINDINGS: BRAIN / INTRACRANIAL CONTENTS: Unenhanced MR images of the brain demonstrate no evidence of acute int racranial abnormality. Ventricles and sulci are prominent in size, consistent with age-related atrophic change. There is no evidence of acute ischemic injury, hemorrhage, or mass. Prominent chronic appearing micro angiopathic white matter T2 weighted hyperintensities are present throughout the subcortical and deep white matter of cerebral hemispheres bilaterally. There are no abnormal extra-axial fluid collections. EXTRACRANIAL: Unremarkable CRANIOCERVICAL JUNCTION: No significant abnormality. VASCULAR FLOW-VOIDS: No significant abnormality. IMPRESSION: No acute abnormality. Chronic and age-related changes. Signer Name: Rome Berry MD Signed: 06/21/2019 2:31 PM Workstation Name: [id number]
[2019-06-22] MEDS: SODIUM CHLORIDE 0.9% 1000 ML 1,000 ML IV SCH (05:45)
--- NOTE | 2019-06-22 10:20 | Discharge Summary ---
Providers - Providers Date of Admission: 06/21/19 11:10 Date of discharge: 06/22/19 Attending physician: AGNES BLAKE 06/19/19 18:58 Occupational Therapy Evaluate and Treat [CONS] Routine Comment: Reason For Exam: Neuro deficits Physical Therapy Evaluation and Treat [CONS] Routine Comment: Reason For Exam: Neuro deficits 06/19/19 19:01 Consult to Physician [CONS] Routine Comment: Consulting Provider: VINNY HAMM Instructions: Reason For Exam: cva 06/19/19 21:13 psychiatry consult [Consult to Mental Health] [CONS] Routine Reason For Exam: schizophrenia Place consult to:: psych Notified:: MARI Primary care physician: TRANSLATIONAL SPECIALIST Hospitalization Reason for admission: fall Condition: Stable Hospital course: 68-year-old male with past medical history of diabetes mellitus type 2 schizophrenia who presented through the emergency department with complaints of dysarthria and a fall. The patient underwent CVA work-up with CT of the head that was negative for acute intracranial process. CTA of the head and neck reviewed showing no large vessel occlusion and CT of the cervical spine negative for fracture. EKG was sinus rhythm and no evidence of atrial fibrillation on telemetry. Patient had no further neurological decline during the hospitalization. No posturing, seizures or loss of consciousness. Neurology saw the patient in consultation and recommended MRI along with echocardiogram. There was initially some concern for posterior circulation stroke basilar distribution acute ischemic thrombosis causing dysarthria and left upper extremity weakness, lacunar syndrome. However, MRI was found to be negative. Patient did have a patent foramen ovale. Neurology did not believe that this needed to be work-up with Doppler studies. Etiology was not CVA and likely related to deconditioning or potentially failure to thrive. The patient is felt to have received maximal hospital benefit and will be discharged home. Dedicated discharge time 32 minutes. Disposition: - TO HOME OR SELFCARE Time spent for discharge: 32 - Discharge Diagnoses (1) Generalized weakness Status: Acute (2) Diabetes Status: Acute (3) HTN (hypertension) Status: Acute Qualifiers: Hypertension type: essential hypertension Qualified Code(s): I10 - Essential (primary) hypertension (4) History of unsteady gait Status: Acute (5) Schizophrenia Status: Acute Qualifiers: Schizophrenia type: unspecified Qualified Code(s): F20.9 - Schizophrenia, unspecified Core Measure Documentation - Palliative Care Palliative Care/ Comfort Measures: Not Applicable - Core Measures Any of the following diagnoses?: none Exam - Constitutional Vitals: Temp Pulse Resp BP Pulse Ox 99.4 F 96 H 18 122/64 95 06/22/19 08:12 06/22/19 08:12 06/22/19 08:12 06/22/19 08:12 06/22/19 07:32 General appearance: Present: no acute distress, well-nourished - EENT Eyes: Present: PERRL ENT: hearing intact, clear oral mucosa - Neck Neck: Present: supple, normal ROM - Respiratory Respiratory effort: normal Respiratory: bilateral: CTA - Cardiovascular Heart Sounds: Present: S1 & S2. Absent: rub, click - Extremities Extremities: pulses symmetrical, No edema Peripheral Pulses: within normal limits - Abdominal General gastrointestinal: Present: soft, non-tender, non-distended, normal bowel sounds Male genitourinary: Present: normal - Integumentary Integumentary: Present: clear, warm, dry - Musculoskeletal Musculoskeletal: gait normal, strength equal bilaterally - Psychiatric Psychiatric: appropriate mood/affect, intact judgment & insight - Neurologic Neurologic: CNII-XII intact, moves all extremities Plan Activity: advance as tolerated Weight Bearing Status: Weight Bear as Tolerated Diet: diabetic Follow up with: PRIMARY CARE, [Primary Care Provider] - 3-5 Days VINNY HAMM MD [Staff Physician] - 7 Days Prescriptions: AtorvaSTATin [Lipitor] 20 mg PO QHS #30 tab
[2019-06-22] MEDS: BENZTROPINE 1 MG TAB PO SCH (10:35)
[2019-06-22] MEDS: FERROUS SULFATE 325 MG TAB PO SCH (10:35)
[2019-06-22] MEDS: ASPIRIN 325 MG TAB PO SCH (10:35)
[2019-06-22] MEDS: HEPARIN 5,000 UNIT/1 ML VIAL SUB-Q SCH (10:35)
[2019-06-22] MEDS: HALOPERIDOL 5 MG TAB PO SCH (10:36)
[2019-06-22 14:49] VITALS: BP 116/63
== END 2019-06-22 19:51 | disposition home or self-care (01) | DRG 71 ==
LOC: ED 13:00 → 2B-ACE 18:58 → OBSVTOIN 06-21 11:10
PROVIDERS: ADMIT Internal Medicine; ATTEND Hospitalist
DX: G93.40 Encephalopathy, unspecified (principal); E44.1 Mild protein-calorie malnutrition; E11.9 Type 2 diabetes mellitus without complications; F20.9 Schizophrenia, unspecified; R47.1 Dysarthria and anarthria; I10 Essential (primary) hypertension; R62.7 Adult failure to thrive; Z82.49 Family history of ischemic heart disease and other diseases of the circulatory system; Z79.899 Other long term (current) drug therapy; Z68.22 Body mass index [BMI] 22.0-22.9, adult
CPT/HCPCS: 36415; 70450; 70496; 70498; 70551; 71045; 72125; 72170; 80053; 80061; 80164; 80178; 80185; 80320; 81001; 82140; 82550; 82962; 83735; 84443; 84484; 85025; 85610; 85730; 87040; 87086; 93005; 93010; 93306; 96374; 96375; G0378; A9270-GY; G0480; J1644; J2060; J7030; Q9967